=== PATIENT | female | born 1990 | race Caucasian/White ===

== ENCOUNTER 2017-07-14 06:54 | Inpatient (IN) | payer OTHER ==
[2017-07-14 06:15] VITALS: BMI 39.2
[~2017-07-14 06:54] MED LIST: Lactated Ringer's 1,000 ML IV SCH
[2017-07-14 07:00] LABS: HEMATOCRIT 38.3 % (34.0-47.0); MEAN CELL VOLUME 92.9 fL (81.0-99.0); MEAN CORPUSCULAR HEMOGLOBIN 31.1 pg (27.0-31.0); MEAN CORPUSCULAR HGB CONC 33.5 g/dL (33.0-37.0); MEAN PLATELET VOLUME 10.1 fL (7.2-11.7); RED CELL DISTRIBUTION WIDTH 14.7 % (11.5-14.5); WHITE BLOOD COUNT 9.9 K/uL (4.8-10.8)
[2017-07-14] MEDS ORDERED: Sodium Citrate/Citric Acid 15 ml Sol ONE (07:02)
[2017-07-14] MEDS ORDERED: cefOXitin IV 2 gm in Dextrose 2 GM/50 ML BAG IVPB ONE ×2 (07:02→08:33)
[2017-07-14] MEDS ORDERED: Oxytocin 20 units in LR 2,000 ML IV ONE (07:03)
[2017-07-14 07:06] LABS: RBC URINE 3 /hpf (0-3); URINE BACTERIA FEW (<OCC); URINE BILIRUBIN NEGATIVE (NEGATIVE); URINE BLOOD NEGATIVE (NEGATIVE); URINE COLOR Yellow (YELLOW); URINE GLUCOSE (UA) NORMAL (Normal); URINE KETONE NEGATIVE (NEGATIVE); URINE LEUKOCYTE ESTERASE 2+ Leu/uL (Negative); URINE PROTEIN NEGATIVE (NEGATIVE); URINE UROBILINOGEN NORMAL mg/dL (0.2-1.0); WBC URINE 14 /hpf (0-5)
[2017-07-14 07:13] LABS: ALKALINE PHOSPHATASE 117 U/L (38-126); ALT/SGPT 23 U/L (9-52); AST/SGOT 18 U/L (14-36); BILIRUBIN,TOTAL 0.4 mg/dL (0.2-1.3); BLOOD UREA NITROGEN 13 mg/dL (7-17); CARBON DIOXIDE 18 mmol/L (22-30); CHLORIDE 106 mmol/L (98-107); GFR AFRICAN-AMERICAN > 60; GLUCOSE,RANDOM 81 mg/dL (65-105); POTASSIUM 3.9 mmol/L (3.6-5.2); SODIUM 134 mmol/L (132-148); TOTAL PROTEIN 6.2 g/dL (6.3-8.3)
--- NOTE | 2017-07-14 07:54 | OBADHP ---
Datetime: 07/14/2017 07:08 Admit Comment, IP Provider: Patient is a 26 yo at 39w0d CARL 07/21/17 presents to L and D for s cheduled repeat c section. Patient is doing well, no complaints at this time. Patient endorses +FM, d enies CTX, vaginal bleeding, leakage of fluid. Issues: Polyhydramnios OBHx: 1. 2009 F PLTCD 2/2 NRFHT, 7lbs 7oz, no complications 2. 2012 EAB with D+C at 7 weeks 3. 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 stable, afebrile 2. admit to L+D 3. admission labs 4. IVF hydration 5. Cefoxitin 2 gm preoperatively 6. CEFM and TOCO 7. Anesthesia notified 8. Diet NPO 9. Plan d/w attending Maria G Mora DO PGY-[address] Simons FHR - Baseline A Provider: 135 Comments, ACOG Physical Exam: VSS Gen: AAOx3, NAD CV: RRR Lungs: CTA B/L Abd: Soft, Gravid Ext: No clubbing, cyanosis, edema; no calf tenderness EFM: 135, Moderate variability, +accels, -decels TOCO: Occasional Vital Signs Provider: Reviewed IP Chief Complaint: Scheduled Section NICHD Variability Prov Fetus A: Moderate 6-25bpm NICHD Accel Fetus A IP Provider: [id number] FHR Category Provider Fetus A: Category I EGA AdmitDate IP: 39.0 IP Adm Impression: Term, intrauterine IP Admit Plan: Admit to unit; Initiate Section protocol
[2017-07-14] MEDS ORDERED: Sodium Citrate/Citric Acid 15 ml Sol PO ONE (08:33)
[2017-07-14] MEDS ORDERED: Morphine 1 mg/ml preservative-free Inj(Duramorph) ONE (08:59)
[2017-07-14] MEDS ORDERED: Oxycodone/Acetaminophen 5/325 mg Tab PO PRN (09:20)
[2017-07-14] MEDS ORDERED: Midazolam 2 MG/2 ML VIAL ONE (10:05)
[2017-07-14] MEDS ORDERED: Oxytocin 10 Units/ml Inj ONE (10:16)
--- NOTE | 2017-07-14 10:49 | PCM.SURG1 ---
Surgeon's Initial Post Op Note - Surgeon's Notes Surgeon: dr alegria Rd Scientist: DR MARIA Type of Anesthesia: Other (EPIDURAL) Anesthesia Administered By: DR DUGGAN Pre-Operative Diagnosis: 26 yr at 39weeks repeat c/s Operative Findings: see the op reort Post-Operative Diagnosis: same Operation Performed: repeat section Specimen/Specimens Removed: cord blood. cord gas. placente Estimated Blood Loss: EBL {In ML}: 800 Blood Products Given: N/A Drains Used: No Drains Post-Op Condition: Good Date of Surgery/Procedure: 07/14/17 Time of Surgery/Procedure: 11:00
--- NOTE | 2017-07-14 11:04 | OBDS ---
DELIVERY PERSONNEL Delivery Doctor: Chintan Simons MD Scrub Nurse: Rylie Garcia Iron Carrier: India Wiseman RN Anesthesiologist: emperatriz Welder Tech: audi MATERNAL INFORMATION Delivery Anesthesia: Spinal Maternal Complications: None Provider Comments: baby deliverd in darcie. end clean cytotec 1000 mcg pr cord gas sent no com LABOR SUMMARY EDC: 07/21/2017 00:00 MEMBRANES Membranes Rupture Method: Artificial Rupture of Membranes: 07/14/2017 10:08 Length of Rupture (hrs): 0.02 Amniotic Fluid Color: Clear Amniotic Fluid Amount: Moderate Amniotic Fluid Odor: Normal STAGES OF LABOR Stage 3 hrs: 0 Stage 3 min: 1 BABY A INFORMATION Delivery Date/Time: 07/14/2017 10:09 Method of Delivery: Born in Route : No : N/A Forceps: N/A Vacuum Extraction: N/A Shoulder Dystocia : No SHOULDER DYSTOCIA BABY A Delivery Date/Time: 07/14/2017 10:09 PRESENTATION/POSITION BABY A Presentation: Cephalic Cephalic Presentation: Vertex Vertex Position: Left Occipital Anterior Breech Presentation: N/A PLACENTA INFORMATION BABY A Placenta Delivery Time : 07/14/2017 10:10 Placenta Method of Delivery: Manual Removal Placenta Status: Delivered SCORES BABY A Heart Rate 1 min: >100 bpm Resp Effort 1 min: Good Cry Reflex Irritability 1 min: Cough or Sneeze or Pulls Away Muscle Tone 1 min: Active Motion Color 1 min: Body [place], Extremities Blue SCORE 1 MIN: 9 Heart Rate 5 min: >100 bpm Resp Effort 5 min: Good Cry Reflex Irritability 5 min: Cough or Sneeze or Pulls Away Muscle Tone 5 min: Active Motion Color 5 min: Body [place], Extremities Blue SCORE 5 MIN: 9 INFANT INFORMATION BABY A Gestational Age at Delivery: 39.0 Gestational Status: Term Outcome : Liveborn Condition : Stable Infant Sex: Male IDENTIFICATION/MEDS BABY A ID Band Number: [id number] ID Band Location: Left Leg; Left Arm Sensor Applied: Yes Sensor Number: [id number] Sensor Location : Cord Clamp WEIGHT/LENGTH BABY A Birthweight (gms): 3525 Weight (lb): 7 Weight (oz): 12 Length Inches: 19.50 Length cms: 49.5 CORD INFORMATION BABY A No. Cord Vessels: 3 Nuchal Cord : N/A Cord Blood Taken: Yes Suction: Mouth; Nose
[2017-07-14] MEDS: Simethicone 80 mg Chewtab PO SCH ×3 (14:00→22:14)
--- NOTE | 2017-07-14 22:38 | OP ---
PREOPERATIVE DIAGNOSIS: A 26-year-old, 1, para 1 at 39 weeks, for elective repeat section. POSTOPERATIVE DIAGNOSIS: A 26-year-old, 1, para 1 at 39 weeks, for elective repeat section. SURGEON: Dr. Simons. CHILDREN'S SERVICE WORKER SURGEON: Dr. Martínez, who was present throughout the surgery for exposure, retraction, pushing at the time of the delivery. ANESTHESIA: Epidural anesthesia. ANESTHESIOLOGIST: Dr. Taylor. COMPLICATION: None. ESTIMATED BLOOD LOSS: 800 mL. PROCEDURES PERFORMED: Repeat section. PROCEDURE: After informed consent was obtained, the patient was brought to the operating room, placed on the table where epidural anesthesia was given. When anesthesia was found to be sufficient, she was prepped and draped in normal sterile fashion. Hannah catheter was then inserted under sterile condition. At the site of the previous skin incision, an incision was made with a knife, the subcutaneous cut with a Bovie. The fascia was then excised on both the sides using curved Birch scissors. Fascia was first from the site of the umbilicus, then at the right side of the rectal muscle, peritoneum was lifted up with two Allis, cut with the Metzenbaum scissors. We went to the abdominal cavity. Fascia was on the top again with Metzenbaum scissors, then the bladder blade was placed, bladder flap was created and then lower uterine segment incision was made with a knife, it was extended using curved Birch scissors. Baby delivered in TAPAN position. Cord was clamped and cut. Baby was handed to the awaiting skid man. Cord gas was sent, placenta delivered manually. Uterus was exteriorized and cleared of all clots and debris. Uterus was boggy. Uterine massage was done. Extra Pitocin was given, then the uterine incision was closed with #1 Vicryl in running interlocking fashion. Second layer was closed with the same stitch. The uterus, tubes, and ovaries looked normal. Cul-de-sac was cleared of all the clots and debris. Uterus was returned back to abdominal cavity. I looked at it but again it was hemostatic. Interceed was placed for more hemostasis. Peritoneum was closed using 2-0 Vicryl in running interlocking fashion. Muscle was closed using 2-0 Vicryl in running interlocking fashion. The fascia was closed using #1 Vicryl in running interlocking fashion. Subcutaneous tissue was closed with 0 Vicryl in interrupted fashion. Skin was closed using nehemiah. The patient tolerated the procedure well. Lap, sponge, and instrument counts were correct at the end of the procedure. Chintan Simons MD
[2017-07-15] MEDS: Oxycodone/Acetaminophen 5/325 mg Tab PO PRN ×2 (06:21→10:33)
[2017-07-15 07:06] LABS: HEMATOCRIT 37.4 % (34.0-47.0); MEAN CELL VOLUME 92.7 fL (81.0-99.0); MEAN CORPUSCULAR HEMOGLOBIN 31.5 pg (27.0-31.0); MEAN PLATELET VOLUME 10.1 fL (7.2-11.7); RED CELL DISTRIBUTION WIDTH 14.7 % (11.5-14.5); WHITE BLOOD COUNT 10.4 K/uL (4.8-10.8)
[2017-07-15] MEDS ORDERED: Bisacodyl 5mg EC Tab PO ONE ×2 (09:20→16:30)
--- NOTE | 2017-07-15 09:50 | OBPPN ---
Datetime: 07/15/2017 07:34 PP Pain Prov: Within normal limits PP Nausea Prov: Denies PP Flatus Prov: No PP BM Prov: No PP Impression Prov: Normal progression PP Plan Prov: Continue present management PP Progress Note Prov: Patient seen and examined at bedside. Per nursing no acute events overnight. Patient is doing well, oob to chair this am. Pain is controlled. Hannah out this am. Patient is tolera ting diet and ambulating. Lochia is moderate. Denies passing flatus and BM. Denies headaches, dizzine ss, cp, palpitations, sob. Breast and bottle feeding VS: 105/71 74 98.3 I/O: 4875/1300 Gen: AAOx3 CV: RRR Lungs: CTA B/L Abd: soft, appropriately tender, fundus is firm, dressing c/di Ext: b/l lower extremity edema; no calf tenderness Labs: 9.9>12.8/38.3<223 F/U am CBC A positive Rubella immune A/P: 26 yo at 39w0d s/p RLTCD POD#1 1. Stable, afebrile 2. Pain control - percocet and motrin prn 3. F/U am CBC 4. Hannah out, f/u voiding trial 5. Encourage ambulation and hydration 6. Advance diet as tolerated 7. Continue routine post care 8. Male infant desires circ 9. Plan d/w attending Maria G Mora DO PGY-1 agree with above pt seen and examiend [facility] resident pod [facility] Vital Signs Provider PP: Reviewed
[2017-07-15] MEDS: Simethicone 80 mg Chewtab PO SCH ×4 (10:33→21:47)
[2017-07-15 16:18] VITALS: O2SAT 98
[2017-07-16] MEDS: Oxycodone/Acetaminophen 5/325 mg Tab PO PRN ×3 (01:49→23:52)
[2017-07-16] MEDS: Simethicone 80 mg Chewtab PO SCH ×4 (10:22→21:57)
--- NOTE | 2017-07-16 23:58 | OBPPN ---
Datetime: 07/16/2017 23:49 PP Pain Prov: Within normal limits PP Nausea Prov: Denies PP Flatus Prov: Yes PP BM Prov: No PP Breasts Prov: Normal PP Heart Prov: Normal PP Lungs Prov: Normal PP Abdomen/Uterus Prov: Normal PP Lochia Prov: Normal PP Vulva/Perineum Prov: Not Done PP CVA Tenderness Prov: Normal PP Extremities Prov: Normal PP C/S Incision Prov: Normal PP Progress Prov: Not Applicable PP Comments Phys Exam Prov: Abdomen: Obese, Soft, (+) BS. Incision with nehemiah - clean, dry, intact . Fundus firm, mobile, mildly tender. Mild lochia rubra All other systems reviewed and are negative PP Impression Prov: Normal progression PP Plan Prov: Continue present management PP Progress Note Prov: Patient seen and evaluated earlier inthe morning: received in bed with FOTram, r oom 451. (+) incisional pain, pain scle 7/10 - reloieved with p.o. pain meds. Denies nausea, vomitig . Vomiting an dambulating without difficulty. Mainly bottlefeeding P.E.: as above. WD in NAD. Awake, alert, oriented to time, person and place. Pleasant and cooperat [place] - POD#1 H/H 12.7/37.4. Rh(+) Assessment: POD#2, 26 yo P2, S/ P repeat LTCS. Afebrile, vital signs stable. Returning GI and functions. Clinically stable. Patient desired circumcision for son. Consent obtained after di scussion of possible risks, complications; patient offered no questions. Patient is clinically stable Plan: 1) continue present management 2) Anticipate discharge home 07/17/17 Vital Signs Provider PP: Reviewed
[2017-07-17] MEDS: Oxycodone/Acetaminophen 5/325 mg Tab PO PRN (06:53)
[2017-07-17 08:12] VITALS: BP 109/68; PULSE 88; RESP 18; TEMP 98.7
[2017-07-17] MEDS: Simethicone 80 mg Chewtab PO SCH (09:25)
--- NOTE | 2017-07-17 09:55 | OBPPN ---
Datetime: 07/17/2017 09:53 PP Pain Prov: Within normal limits PP Nausea Prov: Denies PP Flatus Prov: Yes PP BM Prov: Yes PP Breasts Prov: Normal PP Heart Prov: Normal PP Lungs Prov: Normal PP Abdomen/Uterus Prov: Normal PP Lochia Prov: Normal PP Vulva/Perineum Prov: Normal PP CVA Tenderness Prov: Normal PP Extremities Prov: Normal PP C/S Incision Prov: Normal PP Impression Prov: Normal progression PP Plan Prov: Discharge PP Progress Note Prov: Pt seen and examined and reports pain is controlled with medication. Pt repor ts ambuating, voiding, passing flatus, no BM. Pt denies any fever, chills, nausea, vomiting, CP, SOB. lightheadness, dizzyness. Pt is breast and bottle feeding and denies any feelings of sadness or depr ession. VSS PE: GEN: NAD, AAO x 3 BREAST: NT, Non engorged b/l RES: CTAB/l CVS: RRR, +S1/S2 ABD: soft, NT/ND, +BS. No guarding, no reboudn tenderness, no rigidity FUNDUS: Firm, at level of umbiliucs INCISCION C/D/I healing well nehemiah intact VE: Minimal lochia, non fouls smelling EXT: no calf tenderness, negative ruby's sign A/P s/p PCS POD #3 doing well, requesting discharge -cont current managment -discharge home -RTO 1 week for incison check, staple removal -precautions given IP PP Procedures: None Vital Signs Provider PP: Reviewed; Within Normal Limits
--- NOTE | 2017-07-17 09:57 | OBDCSUM ---
Datetime: 07/17/2017 08:23 Discharged to, Provider: Home Follow up at, Provider: rakel Disch Instr Activity: Normal activity Disch Instr Diet: Regular Discharge Instructions, Provider: Routine instructions given Discharge Diagnosis, Provider: Term Delivered Discharge Time: 07/17/2017 11:30 Follow up in weeks, Provider: 9-6-17 Disch Referrals: None Disch Activity Restrictions: No lifting; Minimize stair-climbing; No sexual activity; Nothing in vag vera - [place], tampons, douche Discharge Comment, Provider: if fever, chills, heabybleeding more than 2 pads, / hour, pain, naues, vomiting, headache, go t ocloses ER no sex, no douching, no tampons x 6 weeks Contraception after Delivery: Not Planning to Use
== END 2017-07-17 12:00 | disposition home or self-care (01) | DRG 371 ==
LOC: C.4D 06:54 → C.4M 12:58
PROVIDERS: ADMIT Obstetrics & Gynecology; ATTEND Obstetrics & Gynecology
PROC: 10D00Z1 Extraction of Products of Conception, Low, Open Approach (ICD-10-PCS; principal; 2017-07-14)
DX: O34.211 Maternal care for low transverse scar from previous cesarean delivery (principal); O40.3XX0 Polyhydramnios, third trimester, not applicable or unspecified; O99.824 Streptococcus B carrier state complicating childbirth; Z3A.39 39 weeks gestation of pregnancy; O99.214 Obesity complicating childbirth; Z68.39 Body mass index [BMI] 39.0-39.9, adult; Z37.0 Single live birth